=== PATIENT | female | born 1990 | race Caucasian/White ===

== ENCOUNTER 2016-07-23 12:05 | Emergency (ER) | payer OTHER ==
[~2016-07-23] VITALS: Ht 170.2 cm; Wt 102.1 kg
[~2016-07-23 12:05] MED LIST: AMOXICILLIN 50500 MG; CIPRO500 MG; CLEOCIN HCL300 MG PO; FLEXERIL PO; IBUPROFEN 600600 M1 PO; LANSOPRAZOLE30 MG; LISINOPRIL10 MG; LISINOPRIL10 MG PO; MACROBID 100 M100 M1 PO; MOBIC7.5 MG PO; NOHOMEMEDICATIONS; NORFLEX100 MG PO; ONDANSETRON HCL4 M2 PO; PENICILLIN VK250 MG PO; PERCOCET 5-3251 EACH PO; PREDNISONE 20 M20 MG PO; PROMETHAZINE D480 ML PO; TRAMADOL 50 MG50 MG PO; ZANTAC 150MG T150 MG PO; ZOFRAN ODT4 MG PO
[2016-07-23 13:59] LABS: URINE BILIRUBIN NEGATIVE (Negative); URINE BLOOD NEGATIVE (Negative); URINE COLOR YELLOW; URINE GLUCOSE-RANDOM* NEGATIVE (Negative); URINE KETONES NEGATIVE (Negative); URINE LEUKOCYTES-REFLEX NEGATIVE (Negative); URINE PROTEIN (DIPSTICK) NEGATIVE (Negative); URINE UROBILINOGEN 0.2 E.U./dl (0.2-1.0)
[2016-07-23 14:00] LABS: ABSOLUTE NEUTROPHILS 4.5 thou/uL (1.4-8.2); BASOPHILS 0.3 % (0.0-2.0); EOSINOPHILS 1.4 % (0.0-3.0); HEMATOCRIT 41.2 % (37.0-47.0); HEMOGLOBIN 13.9 gm/dL (12.0-15.0); MCH 28.9 pg (26.0-34.0); MCHC 33.8 g/dL (28.0-37.0); MCV 85.4 fL (80.0-100.0); MONOCYTES 9.7 % (1.0-8.0); PLATELET COUNT 253 thou/uL (150-400); POLYS 62.6 % (36.0-66.0); RBC 4.82 mil/uL (4.20-5.00); RDW 16.2 % (10.5-14.5); WBC 7.2 thou/uL (4.0-11.0)
[2016-07-23 14:06] LABS: MANUAL DIFF NO
[2016-07-23 14:08] LABS: CALCIUM 9.1 mg/dL (8.5-10.1); CREATININE 0.9 mg/dL (0.6-1.3); POTASSIUM 3.7 mmol/L (3.5-5.1)
[2016-07-23] MEDS ORDERED: ZOFRAN ODT4 MG PO (14:33)
[2016-07-23 14:50] VITALS: BP 156/78
== END 2016-07-23 14:50 | disposition home or self-care (01) ==
LOC: ER 12:05
PROVIDERS: Emergency Medicine
DX: R11.2 Nausea with vomiting, unspecified (principal); R19.7 Diarrhea, unspecified; I10 Essential (primary) hypertension; E03.9 Hypothyroidism, unspecified; F17.210 Nicotine dependence, cigarettes, uncomplicated

== ENCOUNTER 2016-08-14 19:32 | Emergency (ER) | payer OTHER ==
[~2016-08-14] VITALS: Ht 167.6 cm; Wt 110.2 kg
[2016-08-14 19:39] VITALS: BP 160/107
[2016-08-14] MEDS ORDERED: IBUPROFEN 600600 M1 PO (20:07)
== END 2016-08-14 20:35 | disposition home or self-care (01) ==
LOC: ER 19:32
DX: J02.0 Streptococcal pharyngitis (principal); I10 Essential (primary) hypertension; E03.9 Hypothyroidism, unspecified; Z87.891 Personal history of nicotine dependence

== ENCOUNTER 2016-08-19 20:25 | Emergency (ER) | payer OTHER ==
[~2016-08-19] VITALS: Ht 167.6 cm; Wt 90.7 kg
[2016-08-19 20:26] VITALS: BP 169/113
[2016-08-19] MEDS ORDERED: CEPACOL SORE T1 EAC7 MM (20:57)
== END 2016-08-19 21:10 | disposition home or self-care (01) ==
LOC: ER 20:25
DX: J04.0 Acute laryngitis (principal); J02.8 Acute pharyngitis due to other specified organisms; I10 Essential (primary) hypertension; E03.9 Hypothyroidism, unspecified; Z98.890 Other specified postprocedural states; Z87.891 Personal history of nicotine dependence

== ENCOUNTER 2016-12-04 09:14 | Emergency (ER) | payer OTHER ==
[~2016-12-04] VITALS: Ht 167.6 cm; Wt 99.8 kg
[~2016-12-04 09:14] MED LIST changes: +CEPACOL SORE T1 EAC7 MM; +CLONIDINE0.1 PO; +COZAAR 50 MG TA50 M2 PO; +METFORMIN HCL500 MG PO
[2016-12-04 09:22] VITALS: BP 156/84
[2016-12-04] MEDS ORDERED: GUAIFEN-CODEIN120 ML PO (09:31)
[2016-12-04] MEDS ORDERED: TESSALON PERLE100 MG PO (09:31)
== END 2016-12-04 10:14 | disposition home or self-care (01) ==
LOC: ER 09:14
DX: J06.9 Acute upper respiratory infection, unspecified (principal); I10 Essential (primary) hypertension; F10.99 Alcohol use, unspecified with unspecified alcohol-induced disorder; Z87.891 Personal history of nicotine dependence

== ENCOUNTER 2017-02-09 09:30 | Emergency (ER) | payer OTHER ==
[~2017-02-09] VITALS: Ht 167.6 cm; Wt 113.4 kg
[~2017-02-09 09:30] MED LIST changes: +GUAIFEN-CODEIN120 ML PO; +TESSALON PERLE100 MG PO
[2017-02-09 09:31] VITALS: BP 171/93
[2017-02-09 11:15] LABS: ABSOLUTE NEUTROPHILS 7.6 thou/uL (1.4-8.2); BASOPHILS 0.2 % (0.0-2.0); EOSINOPHILS 0.9 % (0.0-3.0); HEMATOCRIT 42.2 % (37.0-47.0); HEMOGLOBIN 14.4 gm/dL (12.0-15.0); LYMPHOCYTES 23.6 % (24.0-44.0); MCH 30.1 pg (26.0-34.0); MCHC 34.1 g/dL (28.0-37.0); MCV 88.2 fL (80.0-100.0); MONOCYTES 6.2 % (1.0-8.0); PLATELET COUNT 289 thou/uL (150-400); POLYS 69.1 % (36.0-66.0); RBC 4.78 mil/uL (4.20-5.00); RDW 16.1 % (10.5-14.5)
[2017-02-09 11:17] LABS: URINE BILIRUBIN NEGATIVE (Negative); URINE BLOOD TRACE (Negative); URINE COLOR YELLOW; URINE GLUCOSE-RANDOM* NEGATIVE (Negative); URINE KETONES NEGATIVE (Negative); URINE NITRITE NEGATIVE (Negative); URINE PROTEIN (DIPSTICK) TRACE (Negative); URINE UROBILINOGEN 0.2 E.U./dl (0.2-1.0)
[2017-02-09 11:23] LABS: MANUAL DIFF NO
[2017-02-09 11:32] LABS: ANION GAP 9 mmol/L (7-16); BUN 6 mg/dL (7-18); CALCIUM 9.3 mg/dL (8.5-10.1); CHLORIDE 104 mmol/L (98-107); CO2 24 mmol/L (21-32); CREATININE 0.7 mg/dL (0.6-1.0); GLUCOSE 96 mg/dL (74-106); POTASSIUM 3.7 mmol/L (3.5-5.1); SODIUM 137 mmol/L (136-145)
[2017-02-09 11:40] LABS: ALBUMIN 3.8 g/dL (3.4-5.0); ALKALINE PHOSPHATASE 96 U/L (46-116); DIRECT BILIRUBIN < 0.1 mg/dL (<0.1-0.3); SGOT 35 U/L (15-37); SGPT 69 U/L (30-65); TOTAL BILIRUBIN 0.6 mg/dL (<0.1-1.0)
== END 2017-02-09 13:38 | disposition home or self-care (01) ==
LOC: ER 09:30
PROVIDERS: Nurse Practitioner
DX: O26.891 Other specified pregnancy related conditions, first trimester (principal); I10 Essential (primary) hypertension; F10.99 Alcohol use, unspecified with unspecified alcohol-induced disorder; Z87.891 Personal history of nicotine dependence; Z3A.01 Less than 8 weeks gestation of pregnancy

== ENCOUNTER 2017-02-23 11:49 | Emergency (ER) | payer OTHER ==
[~2017-02-23] VITALS: Ht 167.6 cm; Wt 131.5 kg
[2017-02-23 13:02] LABS: URINE BILIRUBIN NEGATIVE (Negative); URINE BLOOD NEGATIVE (Negative); URINE COLOR YELLOW; URINE GLUCOSE-RANDOM* NEGATIVE (Negative); URINE KETONES NEGATIVE (Negative); URINE NITRITE POSITIVE (Negative); URINE PROTEIN (DIPSTICK) NEGATIVE (Negative); URINE SPECIFIC GRAVITY 1.025 (1.003-1.035); URINE UROBILINOGEN 0.2 E.U./dl (0.2-1.0)
[2017-02-23 13:10] LABS: CALCIUM OXALATE >10 Many /LPF (None Seen); SQUAMOUS >10 Many /LPF (0-3)
[2017-02-23 13:11] LABS: CASTS None Seen /LPF (None Seen); URINE RBC 0-2 Rare /HPF (0-2); URINE WBC 0-5 Rare /HPF (0-5)
[2017-02-23] MEDS ORDERED: KEFLEX500 MG PO (15:02)
[2017-02-23 15:23] VITALS: BP 132/70
== END 2017-02-23 15:20 | disposition home or self-care (01) ==
LOC: ER 11:49
PROVIDERS: Physician Assistant
DX: O20.0 Threatened abortion (principal); O23.41 Unspecified infection of urinary tract in pregnancy, first trimester; I10 Essential (primary) hypertension; Z3A.08 8 weeks gestation of pregnancy; Z87.891 Personal history of nicotine dependence; Z98.890 Other specified postprocedural states

== ENCOUNTER 2017-03-22 08:40 | Emergency (ER) | payer OTHER ==
[~2017-03-22] VITALS: Ht 167.6 cm; Wt 136.1 kg
[~2017-03-22 08:40] MED LIST changes: +COLACE100 MG PO; +KEFLEX500 MG PO; +[UNRECOGNIZED DRUG - OTHER] PO
[2017-03-22] MEDS ORDERED: LABETALOL HCL200 MG PO (08:46)
[2017-03-22] MEDS ORDERED: PRENATAL VITAM1 EAC7 PO (08:47)
[2017-03-22 10:26] LABS: HEMATOCRIT 40.8 % (37.0-47.0); HEMOGLOBIN 13.4 gm/dL (12.0-15.0); MCH 28.8 pg (26.0-34.0); MCHC 32.8 g/dL (28.0-37.0); MCV 87.8 fL (80.0-100.0); PLATELET COUNT 219 thou/uL (150-400); RBC 4.65 mil/uL (4.20-5.00); RDW 16.2 % (10.5-14.5); WBC 11.6 thou/uL (4.0-11.0)
[2017-03-22 10:26] LABS: CALCIUM 9.4 mg/dL (8.5-10.1); CREATININE 0.6 mg/dL (0.6-1.0)
[2017-03-22 10:27] LABS: MANUAL DIFF YES
[2017-03-22 10:32] LABS: ALBUMIN 3.1 g/dL (3.4-5.0); TOTAL BILIRUBIN 0.8 mg/dL (<0.1-1.0); TOTAL PROTEIN 7.5 g/dL (6.4-8.2)
[2017-03-22 10:43] LABS: ABSOLUTE NEUTROPHILS 9.6 thou/uL (1.4-8.2); ANISOCYTOSIS 1+; POLYCHROMASIA OCCASIONAL; TOTAL CELL COUNT 100
[2017-03-22 11:02] VITALS: BP 109/71
[2017-03-22] MEDS ORDERED: PHENERGAN 25 MG25 M1 PO (11:02)
== END 2017-03-22 11:07 | disposition home or self-care (01) ==
LOC: ER 08:40
PROVIDERS: Physician Assistant
DX: O26.891 Other specified pregnancy related conditions, first trimester (principal); I10 Essential (primary) hypertension; Z87.891 Personal history of nicotine dependence

== ENCOUNTER 2017-06-26 13:10 | Emergency (ER) | payer OTHER ==
[~2017-06-26] VITALS: Ht 167.6 cm; Wt 136.1 kg
[~2017-06-26 13:10] MED LIST changes: +LABETALOL HCL200 MG PO; +PHENERGAN 25 MG25 M1 PO; +PRENATAL VITAM1 EAC7 PO
[2017-06-26] MEDS ORDERED: CHILDREN'S ASPI81 MG PO (13:13)
[2017-06-26] MEDS ORDERED: CLARITIN10 MG PO (14:23)
[2017-06-26] MEDS ORDERED: SALINE NASAL SP30 ML IRRIG (14:23)
== END 2017-06-26 14:47 | disposition home or self-care (01) ==
LOC: ER 13:10
DX: O99.512 Diseases of the respiratory system complicating pregnancy, second trimester (principal); Z3A.24 24 weeks gestation of pregnancy; J06.9 Acute upper respiratory infection, unspecified; I10 Essential (primary) hypertension

== ENCOUNTER 2017-08-01 17:26 | Emergency (ER) | payer OTHER ==
[~2017-08-01] VITALS: Ht 167.6 cm; Wt 145.2 kg
[~2017-08-01 17:26] MED LIST changes: +CHILDREN'S ASPI81 MG PO; +CLARITIN10 MG PO; +SALINE NASAL SP30 ML IRRIG
[2017-08-01] MEDS ORDERED: MIRALAX17 GM PO (19:00)
== END 2017-08-01 19:11 | disposition home or self-care (01) ==
LOC: ER 17:26
DX: O26.893 Other specified pregnancy related conditions, third trimester (principal); K59.00 Constipation, unspecified; O16.3 Unspecified maternal hypertension, third trimester; Z3A.31 31 weeks gestation of pregnancy; Z87.891 Personal history of nicotine dependence

== ENCOUNTER 2018-06-16 12:38 | Emergency (ER) | payer OTHER ==
[~2018-06-16] VITALS: Ht 167.6 cm; Wt 145.2 kg
[~2018-06-16 12:38] MED LIST changes: +MIRALAX17 GM PO
[2018-06-16 14:43] LABS: ABSOLUTE NEUTROPHILS 8.4 thou/uL (1.4-8.2); BASOPHILS 0.7 % (0.0-2.0); EOSINOPHILS 1.2 % (0.0-3.0); HEMOGLOBIN 13.4 gm/dL (12.0-15.0); LYMPHOCYTES 23.8 % (24.0-44.0); MCH 28.2 pg (26.0-34.0); MCHC 32.7 g/dL (28.0-37.0); PLATELET COUNT 299 thou/uL (150-400); POLYS 67.3 % (36.0-66.0); RBC 4.77 mil/uL (4.20-5.00); RDW 16.9 % (10.5-14.5); WBC 12.5 thou/uL (4.0-11.0)
[2018-06-16 14:50] LABS: ANION GAP 10 mmol/L (7-16); BUN 15 mg/dL (7-18); CALCIUM 9.5 mg/dL (8.5-10.1); CHLORIDE 104 mmol/L (98-107); CO2 24 mmol/L (21-32); CREATININE 0.9 mg/dL (0.6-1.0); GLUCOSE 93 mg/dL (74-106); POTASSIUM 3.7 mmol/L (3.5-5.1); SODIUM 138 mmol/L (136-145)
[2018-06-16 15:00] LABS: TROPONIN-I <0.06 ng/mL (<0.06)
[2018-06-16] MEDS ORDERED: LISINOPRIL10 MG PO (15:24)
[2018-06-16 16:06] VITALS: BP 104/52
--- NOTE | 2018-06-17 09:37 | EKG ---
[address] [employer] [place] [address] ELECTROCARDIOGRAM REPORT Name: ROBIN MASTERSON Room #: DEP [facility]#: [id number] Admission: 06/16/18 Attend Phys: Discharge: 06/16/18 Date of : [birth year] Report #: [id number] THIS REPORT FOR: //name// [facility] ED Test Date: 2018-06-16 Test Time: 12:44:13 Pat Name: ROBIN MASTERSON Department: Room: Gender: F Envelope Maker: WON : 1990 Requested By: Franco Castañeda Order Number: [id number] MD: Alexandru Gramajo Measurements Intervals [place] Rate: 100 P: 50 DC: 145 QRS: 2 QRSD: 83 T: 28 QT: 351 QTc: 453 Interpretive Statements Sinus tachycardia Low voltage, precordial leads No previous ECG available for comparison Electronically Signed On 06-17-2018 9:36:51 [employer]GER [employer] by Alexandru Gramajo [email or web address] <ELECTRONICALLY SIGNED> By: Alexandru Gramajo MD, [facility] 06/17/18 0936 1244 1244 Alexandru Gramajo MD, FACC /EPI
== END 2018-06-16 16:05 | disposition home or self-care (01) ==
LOC: ER 12:38
PROVIDERS: Emergency Medicine
DX: R07.89 Other chest pain (principal); R06.02 Shortness of breath; I10 Essential (primary) hypertension; Z98.890 Other specified postprocedural states; Z87.891 Personal history of nicotine dependence

== ENCOUNTER 2018-09-20 10:07 | Emergency (ER) | payer OTHER ==
[~2018-09-20] VITALS: Ht 167.6 cm; Wt 154.2 kg
[2018-09-20 10:23] LABS: URINE BILIRUBIN NEGATIVE (Negative); URINE BLOOD NEGATIVE (Negative); URINE CLARITY CLEAR; URINE COLOR YELLOW; URINE GLUCOSE-RANDOM* NEGATIVE (Negative); URINE KETONES NEGATIVE (Negative); URINE LEUKOCYTES NEGATIVE (Negative); URINE NITRITE NEGATIVE (Negative); URINE PROTEIN (DIPSTICK) NEGATIVE (Negative); URINE UROBILINOGEN 0.2 E.U./dl (0.2-1.0)
[2018-09-20 13:09] VITALS: BP 136/87
== END 2018-09-20 13:46 | disposition left against medical advice (07) ==
LOC: ER 10:07
PROVIDERS: Emergency Medicine
DX: R10.33 Periumbilical pain (principal); R19.7 Diarrhea, unspecified; R11.0 Nausea; I10 Essential (primary) hypertension; Z87.891 Personal history of nicotine dependence

== ENCOUNTER 2019-07-04 09:53 | Emergency (ER) | payer OTHER ==
[~2019-07-04] VITALS: Ht 167.6 cm; Wt 145.2 kg
[2019-07-04 10:18] LABS: ABSOLUTE NEUTROPHILS 7.7 thou/uL (1.4-8.2); BASOPHILS 0.9 % (0.0-2.0); EOSINOPHILS 1.3 % (0.0-3.0); HEMATOCRIT 42.6 % (37.0-47.0); HEMOGLOBIN 14.3 gm/dL (12.0-15.0); LYMPHOCYTES 13.5 % (24.0-44.0); MCH 30.6 pg (26.0-34.0); MCHC 33.5 g/dL (28.0-37.0); MCV 91.4 fL (80.0-100.0); MONOCYTES 4.9 % (1.0-8.0); PLATELET COUNT 524 thou/uL (150-400); POLYS 79.4 % (36.0-66.0); RBC 4.66 mil/uL (4.20-5.00); RDW 13.4 % (10.5-14.5); WBC 9.7 thou/uL (4.0-11.0)
[2019-07-04] MEDS ORDERED: PRINIVIL10 MG PO (10:22)
[2019-07-04] MEDS ORDERED: NEXPLANON68 MG IMPLANT (10:22)
[2019-07-04 10:26] LABS: URINE BILIRUBIN NEGATIVE (Negative); URINE BLOOD NEGATIVE (Negative); URINE CLARITY CLEAR; URINE COLOR YELLOW; URINE GLUCOSE-RANDOM* NEGATIVE (Negative); URINE KETONES NEGATIVE (Negative); URINE LEUKOCYTES-REFLEX TRACE (Negative); URINE NITRITE-REFLEX NEGATIVE (Negative); URINE PROTEIN (DIPSTICK) NEGATIVE (Negative); URINE UROBILINOGEN 0.2 E.U./dl (0.2-1.0)
[2019-07-04 10:27] LABS: CALCIUM 9.1 mg/dL (8.5-10.1); POTASSIUM 3.7 mmol/L (3.5-5.1)
[2019-07-04 10:34] LABS: ALBUMIN 3.9 g/dL (3.4-5.0); TOTAL BILIRUBIN 0.2 mg/dL (<0.1-1.0); TOTAL PROTEIN 7.8 g/dL (6.4-8.2)
[2019-07-04] MEDS ORDERED: ZOFRAN4 MG PO (11:43)
[2019-07-04 11:56] VITALS: BP 128/81
== END 2019-07-04 11:57 | disposition home or self-care (01) ==
LOC: ER 09:53
PROVIDERS: Student in an Organized Health Care Education/Training Program
DX: J10.1 Influenza due to other identified influenza virus with other respiratory manifestations (principal); R11.2 Nausea with vomiting, unspecified; I10 Essential (primary) hypertension; Z98.890 Other specified postprocedural states; Z87.891 Personal history of nicotine dependence

== ENCOUNTER 2020-06-26 20:37 | Emergency (ER) | payer OTHER ==
[~2020-06-26] VITALS: Ht 167.6 cm; Wt 99.3 kg
[~2020-06-26 20:37] MED LIST changes: +NEXPLANON68 MG IMPLANT; +PRINIVIL10 MG PO; +ZOFRAN4 MG PO
[2020-06-26 21:01] VITALS: BP 122/87
[2020-06-26] MEDS ORDERED: PENICILLIN VK500 MG PO (21:15)
[2020-06-26] MEDS ORDERED: HYDROCODON-ACE1 EAC7 PO (21:15)
== END 2020-06-26 21:21 | disposition home or self-care (01) ==
LOC: ER 20:37
DX: K08.89 Other specified disorders of teeth and supporting structures (principal); I10 Essential (primary) hypertension; Z79.899 Other long term (current) drug therapy; Z87.891 Personal history of nicotine dependence

== ENCOUNTER 2020-11-05 14:39 | Emergency (ER) | payer OTHER ==
[~2020-11-05] VITALS: Ht 167.6 cm; Wt 90.7 kg
[~2020-11-05 14:39] MED LIST changes: +HYDROCODON-ACE1 EAC7 PO; +PENICILLIN VK500 MG PO
[2020-11-05] MEDS ORDERED: PNV 29-1 TABLE1 EACH PO (14:58)
[2020-11-05 15:04] LABS: URINE BILIRUBIN NEGATIVE (Negative); URINE BLOOD NEGATIVE (Negative); URINE CLARITY SL CLOUDY; URINE COLOR YELLOW; URINE GLUCOSE-RANDOM* NEGATIVE (Negative); URINE KETONES NEGATIVE (Negative); URINE LEUKOCYTES-REFLEX 2+ (Negative); URINE NITRITE-REFLEX NEGATIVE (Negative); URINE PROTEIN (DIPSTICK) NEGATIVE (Negative)
[2020-11-05 15:13] LABS: BACTERIA-REFLEX 1-9 Few /HPF (None Seen); CASTS None Seen /LPF (None Seen); CRYSTALS None Seen /LPF (None Seen); SQUAMOUS >10 Many /LPF (0-3); URINE RBC None Seen /HPF (NONE SEEN); URINE WBC-REFLEX 6-15 Few /HPF (0-5)
[2020-11-05 16:20] LABS: ABSOLUTE NEUTROPHILS 7.6 thou/uL (1.4-8.2); BASOPHILS 0.3 % (0.0-2.0); HEMATOCRIT 44.6 % (37.0-47.0); HEMOGLOBIN 14.9 gm/dL (12.0-15.0); LYMPHOCYTES 22.9 % (24.0-44.0); MCH 29.8 pg (26.0-34.0); MCHC 33.3 g/dL (28.0-37.0); MCV 89.2 fL (80.0-100.0); MONOCYTES 7.2 % (1.0-8.0); POLYS 68.6 % (36.0-66.0); RDW 14.5 % (10.5-14.5); WBC 12.1 thou/uL (4.0-11.0)
[2020-11-05 16:29] LABS: CALCIUM 8.9 mg/dL (8.5-10.1); CREATININE 0.8 mg/dL (0.6-1.0); POTASSIUM 3.4 mmol/L (3.5-5.1)
[2020-11-05 16:36] LABS: ALBUMIN 3.7 g/dL (3.4-5.0); TOTAL BILIRUBIN 0.3 mg/dL (0.2-1.0); TOTAL PROTEIN 7.4 g/dL (6.4-8.2)
[2020-11-05 16:53] LABS: PLATELET COUNT 262 thou/uL (150-400)
[2020-11-05] MEDS ORDERED: LIDOCAINE PAIN1 EACH TRANSDERM (17:34)
[2020-11-05] MEDS ORDERED: CEPHALEXIN500 MG PO (17:34)
[2020-11-05 17:35] VITALS: BP 124/71
== END 2020-11-05 17:35 | disposition home or self-care (01) ==
LOC: ER 14:39
PROVIDERS: Physician Assistant
DX: O23.31 Infections of other parts of urinary tract in pregnancy, first trimester (principal); Z3A.08 8 weeks gestation of pregnancy; I10 Essential (primary) hypertension; R73.03 Prediabetes; Z79.891 Long term (current) use of opiate analgesic; Z87.891 Personal history of nicotine dependence